=== PATIENT | female | born 2000 | race Hispanic/Latino ===

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

== ENCOUNTER → 2022-10-31 | Emergency (ER) | payer OTHER ==
[~2022-10-31] VITALS: Ht 170.2 cm; Wt 124.7 kg
[2022-10-31 17:49] VITALS: BP 115/60
== END ==
LOC: EDH 16:56
DX: O26.892 Other specified pregnancy related conditions, second trimester (principal); G43.909 Migraine, unspecified, not intractable, without status migrainosus; Z3A.18 18 weeks gestation of pregnancy
CPT/HCPCS: 99281; C9803; 81001